=== PATIENT | female | born 1955 | race Caucasian/White ===

== ENCOUNTER 2017-05-02 19:10 | Emergency (ER) | payer OTHER ==
[~2017-05-02] VITALS: Ht 152.4 cm; Wt 47.6 kg
[~2017-05-02 19:10] MED LIST: ALLEGRA180 MG; ANTIVERT25 M1 PO; CLARITIN10 MG PO; CORTISPORIN-TC10 ML OT; HYDROCHLOROQUINE; KEFLEX500 MG PO; LISINOPRIL-HCT1 EAC2 PO; NORCO 5-325 TA1 EACH PO; NORVASC5 MG PO
== END 2017-05-02 21:10 | disposition home or self-care (01) ==
LOC: ER 19:10
DX: G62.9 Polyneuropathy, unspecified (principal); H72.91 Unspecified perforation of tympanic membrane, right ear; I10 Essential (primary) hypertension

== ENCOUNTER → 2020-01-10 | Outpatient (CLI) | payer OTHER ==
[~2020-01-10] MED LIST changes: +EXCEDRIN CAPLE1 EACH PO
== END ==
LOC: LAB 10:46
PROVIDERS: ATTEND Specialist
DX: Z01.812 Encounter for preprocedural laboratory examination (principal); Z20.828 Contact with and (suspected) exposure to other viral communicable diseases

== ENCOUNTER 2020-02-19 22:16 | Emergency (ER) | payer OTHER ==
[~2020-02-19] VITALS: Ht 152.4 cm; Wt 49.0 kg
[2020-02-19 22:43] LABS: ABSOLUTE NEUTROPHILS 6.5 thou/uL (1.4-8.2); BASOPHILS 1.2 % (0.0-2.0); EOSINOPHILS 1.7 % (0.0-3.0); HEMATOCRIT 35.2 % (37.0-47.0); HEMOGLOBIN 11.8 gm/dL (12.0-15.0); LYMPHOCYTES 21.1 % (24.0-44.0); MCH 30.7 pg (26.0-34.0); MCHC 33.7 g/dL (28.0-37.0); MCV 91.1 fL (80.0-100.0); MONOCYTES 7.9 % (1.0-8.0); PLATELET COUNT 378 thou/uL (150-400); POLYS 68.1 % (36.0-66.0); RBC 3.86 mil/uL (4.20-5.00); RDW 14.2 % (10.5-14.5); WBC 9.5 thou/uL (4.0-11.0)
[2020-02-19 22:53] LABS: ANION GAP 14 mmol/L (7-16); BUN 18 mg/dL (7-18); CALCIUM 9.4 mg/dL (8.5-10.1); CHLORIDE 101 mmol/L (98-107); CO2 25 mmol/L (21-32); GLUCOSE 129 mg/dL (74-106); POTASSIUM 3.6 mmol/L (3.5-5.1); SODIUM 140 mmol/L (136-145)
[2020-02-19 23:15] LABS: ALBUMIN 3.7 g/dL (3.4-5.0); LIPASE 71 U/L (73-393); SGOT 20 U/L (15-37); SGPT 24 U/L (30-65); TOTAL BILIRUBIN 0.4 mg/dL (0.2-1.0); TOTAL PROTEIN 7.7 g/dL (6.4-8.2); TROPONIN-I <0.06 ng/mL (<0.06)
[2020-02-20 05:04] VITALS: BP 127/75
--- NOTE | 2020-02-20 08:39 | EKG ---
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: VIKTORIA : 1955 Requested By: Ananth Moy Order Number: [id number] MD: Serge Ventura Measurements Intervals [place] Rate: 83 P: 53 [place]: 169 QRS: -26 QRSD: 86 T: 23 QT: 393 QTc: 462 Interpretive Statements Sinus arrhythmia Ventricular premature complex Abnormal R-wave progression, late transition Inferior infarct, old Compared to ECG 06/12/2015 08:22:56 Inferior Q waves are more prominent Electronically Signed On 02-20-2020 8:39:20 CDT by Serge Ventura [email or web address] <ELECTRONICALLY SIGNED> By: Serge Ventura MD, FACC 02/20/20 0839 16 16 Serge Ventura MD, FACC /EPI
== END 2020-02-20 05:00 | disposition short-term general hospital (02) ==
LOC: ER 22:16
PROVIDERS: Emergency Medicine
DX: I71.00 Dissection of unspecified site of aorta (principal); I10 Essential (primary) hypertension; Z87.891 Personal history of nicotine dependence; Z88.8 Allergy status to other drugs, medicaments and biological substances

== ENCOUNTER → 2020-04-20 | Outpatient (CLI) | payer OTHER ==
[2020-04-20 14:08] LABS: CREATININE 1.1 mg/dL (0.6-1.0)
== END ==
LOC: CAT 13:28
DX: Z01.818 Encounter for other preprocedural examination (principal); I71.2 Thoracic aortic aneurysm, without rupture; J98.4 Other disorders of lung; M25.78 Osteophyte, vertebrae

== ENCOUNTER 2020-06-25 16:44 | Emergency (ER) | payer OTHER ==
[~2020-06-25] VITALS: Ht 152.4 cm; Wt 47.6 kg
[2020-06-25 18:35] LABS: ABSOLUTE NEUTROPHILS 5.9 thou/uL (1.4-8.2); BASOPHILS 1.4 % (0.0-2.0); EOSINOPHILS 2.5 % (0.0-3.0); HEMATOCRIT 34.2 % (37.0-47.0); HEMOGLOBIN 11.6 gm/dL (12.0-15.0); MCH 30.6 pg (26.0-34.0); MCHC 33.9 g/dL (28.0-37.0); MCV 90.3 fL (80.0-100.0); MONOCYTES 6.9 % (1.0-8.0); PLATELET COUNT 283 thou/uL (150-400); POLYS 66.2 % (36.0-66.0); RBC 3.79 mil/uL (4.20-5.00); RDW 14.8 % (10.5-14.5); WBC 8.9 thou/uL (4.0-11.0)
[2020-06-25 18:43] LABS: CALCIUM 9.2 mg/dL (8.5-10.1); CREATININE 1.4 mg/dL (0.6-1.0); POTASSIUM 3.7 mmol/L (3.5-5.1)
[2020-06-25] MEDS ORDERED: DOXYCYCLINE 10100 M2 PO (20:09)
[2020-06-25] MEDS ORDERED: NORCO7.5 PO (20:12)
[2020-06-25 20:13] VITALS: BP 164/94
[2020-06-25] MEDS ORDERED: ATORVASTATIN CA20 MG PO (20:22)
[2020-06-25] MEDS ORDERED: AMLODIPINE BESY10 MG PO (20:23)
[2020-06-25] MEDS ORDERED: CARVEDILOL12.5 MG PO (20:23)
[2020-06-25] MEDS ORDERED: METOPROLOL SUCC25 M1 PO (20:23)
[2020-06-25] MEDS ORDERED: ALENDRONATE SOD70 MG PO (20:23)
--- NOTE | 2020-06-26 07:12 | EKG ---
[address] [address] ELECTROCARDIOGRAM REPORT Name: CAROLINA RUIZ Room #: DEP [facility]#: [id number] Admission: 06/25/20 Attend Phys: Discharge: 06/25/20 Date of : 53 Report #: [id number] 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: : 1955 Requested By: Best Hernandez Order Number: [id number] MD: Phil Gomez Measurements Intervals [place] Rate: 80 P: 63 [place]: 165 QRS: -30 QRSD: 94 T: 58 QT: 386 QTc: 446 Interpretive Statements Sinus rhythm Inferior infarct, old Anteroseptal infarct, age indeterminate Compared to ECG 02/19/2020 22:17:22 Sinus arrhythmia no longer present Ventricular premature complex(es) no longer present Myocardial infarct finding still present Electronically Signed On 06-26-2020 7:12:27 DENTAL OFFICER by Phil Gomez [email or web address] <ELECTRONICALLY SIGNED> By: Phil Gomez MD, [facility] 06/26/20 0712 1814 181 Phil Gomez MD, [facility] /EPI
== END 2020-06-25 20:15 | disposition home or self-care (01) ==
LOC: ER 16:44
PROVIDERS: Emergency Medicine
DX: L03.115 Cellulitis of right lower limb (principal); I73.9 Peripheral vascular disease, unspecified; M79.661 Pain in right lower leg; M79.662 Pain in left lower leg; I10 Essential (primary) hypertension; Z87.891 Personal history of nicotine dependence; Z79.899 Other long term (current) drug therapy; Z88.8 Allergy status to other drugs, medicaments and biological substances

== ENCOUNTER 2020-07-13 09:10 | Emergency (ER) | payer OTHER ==
[~2020-07-13] VITALS: Ht 152.4 cm; Wt 47.6 kg
[~2020-07-13 09:10] MED LIST changes: +ALENDRONATE SOD70 MG PO; +AMLODIPINE BESY10 MG PO; +ATORVASTATIN CA20 MG PO; +CARVEDILOL12.5 MG PO; +DOXYCYCLINE 10100 M2 PO; +METOPROLOL SUCC25 M1 PO; +NORCO7.5 PO
[2020-07-13 09:23] LABS: ABSOLUTE NEUTROPHILS 5.1 thou/uL (1.4-8.2); BASOPHILS 1.1 % (0.0-2.0); HEMOGLOBIN 11.4 gm/dL (12.0-15.0); MCH 30.7 pg (26.0-34.0); MCHC 33.5 g/dL (28.0-37.0); MCV 91.5 fL (80.0-100.0); MONOCYTES 8.2 % (1.0-8.0); PLATELET COUNT 264 thou/uL (150-400); POLYS 66.7 % (36.0-66.0); RBC 3.72 mil/uL (4.20-5.00); RDW 14.8 % (10.5-14.5); WBC 7.7 thou/uL (4.0-11.0)
[2020-07-13 09:33] LABS: ANION GAP 10 mmol/L (7-16); BUN 29 mg/dL (7-18); CALCIUM 9.1 mg/dL (8.5-10.1); CHLORIDE 105 mmol/L (98-107); CO2 28 mmol/L (21-32); CREATININE 0.9 mg/dL (0.6-1.0); GLUCOSE 104 mg/dL (74-106); POTASSIUM 3.9 mmol/L (3.5-5.1); SODIUM 143 mmol/L (136-145)
[2020-07-13 09:43] LABS: ALBUMIN 3.7 g/dL (3.4-5.0); SGOT 22 U/L (15-37); SGPT 29 U/L (30-65); TOTAL BILIRUBIN 0.7 mg/dL (0.2-1.0); TOTAL PROTEIN 7.1 g/dL (6.4-8.2); TROPONIN-I <0.06 ng/mL (<0.06)
[2020-07-13 10:08] VITALS: BP 173/99
--- NOTE | 2020-07-13 16:16 | EKG ---
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: DEANDRA : 1955 Requested By: Best Hernandez Order Number: [id number] MD: Phil Gomez Measurements Intervals [place] Rate: 71 P: 68 [place]: 187 QRS: -31 QRSD: 89 T: 62 QT: 426 QTc: 463 Interpretive Statements Sinus rhythm Left axis deviation Anteroseptal infarct, age indeterminate Compared to ECG 06/25/2020 18:14:42 Left-axis deviation now present Myocardial infarct finding still present Electronically Signed On 07-13-2020 16:16:39 CDT by Phil Gomez [email or web address] <ELECTRONICALLY SIGNED> By: Phil Gomez MD, [facility] 07/13/20 1616 1 1 Phil Gomez MD, FAC /EPI
== END 2020-07-13 10:09 | disposition home or self-care (01) ==
LOC: ER 09:10
PROVIDERS: Emergency Medicine
DX: R25.1 Tremor, unspecified (principal); F41.9 Anxiety disorder, unspecified; I10 Essential (primary) hypertension; Z87.891 Personal history of nicotine dependence; Z79.899 Other long term (current) drug therapy; Z88.8 Allergy status to other drugs, medicaments and biological substances

== ENCOUNTER 2020-09-20 23:59 | Emergency (ER) | payer OTHER ==
[~2020-09-20] VITALS: Ht 152.4 cm; Wt 49.0 kg
[2020-09-21 01:05] LABS: ABSOLUTE NEUTROPHILS 9.2 thou/uL (1.4-8.2); BASOPHILS 0.3 % (0.0-2.0); EOSINOPHILS 0.9 % (0.0-3.0); HEMATOCRIT 21.9 % (37.0-47.0); HEMOGLOBIN 7.3 gm/dL (12.0-15.0); LYMPHOCYTES 9.9 % (24.0-44.0); MCHC 33.3 g/dL (28.0-37.0); MONOCYTES 4.3 % (1.0-8.0); PLATELET COUNT 188 thou/uL (150-400); POLYS 84.6 % (36.0-66.0); RBC 2.28 mil/uL (4.20-5.00); RDW 13.9 % (10.5-14.5); WBC 10.9 thou/uL (4.0-11.0)
[2020-09-21 01:08] LABS: CALCIUM 7.5 mg/dL (8.5-10.1); CREATININE 1.4 mg/dL (0.6-1.0); POTASSIUM 3.4 mmol/L (3.5-5.1)
[2020-09-21 01:11] LABS: APTT 25.9 Seconds (24.5-32.8); INR 1.29; PROTIME 13.9 Seconds (10.5-12.1)
[2020-09-21 01:12] LABS: URINE BILIRUBIN NEGATIVE (Negative); URINE BLOOD NEGATIVE (Negative); URINE CLARITY CLEAR; URINE COLOR YELLOW; URINE GLUCOSE-RANDOM* TRACE (Negative); URINE KETONES NEGATIVE (Negative); URINE LEUKOCYTES-REFLEX NEGATIVE (Negative); URINE NITRITE-REFLEX NEGATIVE (Negative); URINE PROTEIN (DIPSTICK) TRACE (Negative); URINE SPECIFIC GRAVITY <= 1.005 (1.005-1.035); URINE UROBILINOGEN 0.2 E.U./dl (0.2-1.0)
[2020-09-21 01:18] LABS: ALBUMIN 2.4 g/dL (3.4-5.0); TOTAL BILIRUBIN 0.3 mg/dL (0.2-1.0); TOTAL PROTEIN 4.8 g/dL (6.4-8.2); TROPONIN-I 0.12 ng/mL (<0.06)
[2020-09-21 01:45] VITALS: BP 77/37
--- NOTE | 2020-09-21 12:09 | EKG ---
[place] [address] [address] [facility] [employer] [address] ELECTROCARDIOGRAM REPORT Name: CAROLINA RUIZ Room #: DEP [facility]#: [id number] Admission: 09/20/20 Attend Phys: Discharge: 09/21/20 Date of : 53 Report #: [id number] [facility] ED Test Date: 2020-09-21 Test Time: 00:45:03 Pat Name: CAROLINA RUIZ Department: Room: Gender: F Supervisor [employer]ir: JAMILA : 1955 Requested By: Best Hernandez Order Number: [id number] MD: Rohith Maier Measurements Intervals [place] Rate: 96 P: 73 [place]: 165 QRS: 16 QRSD: 94 T: 39 QT: 451 QTc: 570 Interpretive Statements Sinus rhythm Anterior infarct, old Minimal ST depression, inferior leads Prolonged QT interval Baseline wander in lead(s) I,II,III,aVR,aVL,aVF,V1,V3,V4,V5,V6 Compared to ECG 07/13/2020 09:12:11 ST (T wave) deviation now present Prolonged QT interval now present Left-axis deviation no longer present Myocardial infarct finding still present Electronically Signed On 09-21-2020 12:09:36 CDT by Rohith Maier [email or web address] <ELECTRONICALLY SIGNED> By: Rohith Maier MD 09/21/20 1209 Rohith Maier MD /EPI
== END 2020-09-21 01:53 | disposition short-term general hospital (02) ==
LOC: ER 23:59
PROVIDERS: Emergency Medicine
DX: I71.3 Abdominal aortic aneurysm, ruptured (principal); Z20.822 Contact with and (suspected) exposure to COVID-19; D64.9 Anemia, unspecified; R55 Syncope and collapse; I10 Essential (primary) hypertension; M19.90 Unspecified osteoarthritis, unspecified site; I73.9 Peripheral vascular disease, unspecified; Z98.890 Other specified postprocedural states; Z98.51 Tubal ligation status; Z79.899 Other long term (current) drug therapy; Z79.2 Long term (current) use of antibiotics; Z88.6 Allergy status to analgesic agent; Z87.891 Personal history of nicotine dependence